=== PATIENT | female | born 1960 | race African-American/Black ===

== ENCOUNTER 2019-12-09 10:11 | Day surgery (SDC) | payer BC ==
[~2019-12-09] VITALS: Ht 165.1 cm; Wt 82.6 kg
[~2019-12-09 10:11] MED LIST: ASPI-986 PO; ATOR40TA70 PO; CLOP75TA4 PO; MECL-183 PO; NITR0.4T49 SL
[2019-12-09] MEDS ORDERED: ASPI-1497 PO (11:22)
[2019-12-09] MEDS ORDERED: NITROGLYCERIN 50MCG/ML 10ML VIAL (CATH LAB) IV ONE (13:39)
[2019-12-09] MEDS ORDERED: NICARDIPINE 100MCG/ML 10ML VIAL (CATH LAB) IV ONE (13:39)
[2019-12-09] MEDS ORDERED: ASPIRIN/SOD BICARB/CITRIC ACID 324MG TAB EFF ONE (15:11)
[2019-12-09] MEDS ORDERED: MIDAZOLAM HCL 2 MG/2 ML VIAL ONE (15:12)
[2019-12-09] MEDS ORDERED: FENTANYL CITRATE/PF 50MCG/ML 2ML VIAL ONE (15:13)
[2019-12-09] MEDS ORDERED: IODIXANOL 320MG/ML 100 ML BOTTLE IV ONE (15:15)
[2019-12-09] MEDS ORDERED: LIDOCAINE HCL 1% 20ML VIAL (Pyxis) INJ ONE (15:43)
[2019-12-09] MEDS ORDERED: HEPARIN SODIUM 1,000 UNIT/1ML VIAL IV ONE (16:01)
[2019-12-09] MEDS ORDERED: IOHEXOL-300 100 ML BOTTLE ONE (16:05)
[2019-12-09] MEDS ORDERED: ATROPINE SULFATE 1MG/10ML SYR IV PRN (16:30)
[2019-12-09] MEDS ORDERED: ACETAMINOPHEN 325MG TABLET PO PRN (16:30)
[2019-12-09] MEDS ORDERED: MORPHINE SULFATE 2 MG/ML CPJ (NOT FOR IM USE) IV PRN (16:30)
[2019-12-09] MEDS ORDERED: ONDANSETRON HCL 4MG/2ML INJ IV PRN (16:30)
[2019-12-09] MEDS ORDERED: MAGNESIUM 4 G PREMIX 100 ML IV ONE (17:45)
[2019-12-09] MEDS ORDERED: EPOETIN ALFA 10000UNITS/ML VIAL IV NR (20:00)
== END 2019-12-09 20:50 | disposition home or self-care (01) ==
LOC: CCL 10:11
PROVIDERS: ATTEND Specialist
DX: T82.855A Stenosis of coronary artery stent, initial encounter (principal); I25.10 Atherosclerotic heart disease of native coronary artery without angina pectoris; I10 Essential (primary) hypertension; E78.5 Hyperlipidemia, unspecified; Z79.82 Long term (current) use of aspirin; Z79.899 Other long term (current) drug therapy; Z80.3 Family history of malignant neoplasm of breast; Z82.49 Family history of ischemic heart disease and other diseases of the circulatory system; Y71.3 Surgical instruments, materials and cardiovascular devices (including sutures) associated with adverse incidents
CPT/HCPCS: 85347; 93005; 93459; 93571; 99152; 99153; C1769; C1887; C1893; J0885; J1644; J2250; J3010; J3490; Q9967; G0500

== ENCOUNTER → 2019-12-19 | Outpatient (CLI) | payer BC ==
[~2019-12-19] MED LIST changes: +AMLO5TAB88 PO; +ASPI-1497 PO; -ASPI-986 PO; +EZET10TA13 PO; +OLME40TA18 PO
[2019-12-19 12:35] LABS: CLARITY URINE CLEAR (CLEAR); COLOR URINE YELLOW (YELLOW); KETONES URINE NEGATIVE (NEGATIVE); LEUKOCYTE ESTERASE URINE TRACE (NEGATIVE); NITRITE URINE NEGATIVE (NEGATIVE); OCCULT BLOOD URINE NEGATIVE (NEGATIVE); PROTEIN URINE NEGATIVE (NEGATIVE); SPECIFIC GRAVITY URINE 1.015 (1.005-1.030); UROBILINOGEN URINE 0.2 E.U./dL (0.2-1.0)
[2019-12-19 12:39] LABS: BASOPHILS % 1.2 % (0.0-2.0); EOSINOPHILS % 0.8 % (0.0-5.0); HEMATOCRIT. 37.3 % (36.0-48.0); HEMOGLOBIN. 12.1 g/dL (12.0-16.0); LYMPHOCYTES % 36.4 % (20.0-50.0); MEAN CORPUSCULAR HEMOGLOBIN 25.8 pg (28.0-32.0); MEAN CORPUSCULAR VOLUME 79.6 fL (81.0-99.0); MEAN PLATELET VOLUME 7.3 fl (7.4-10.4); NEUTROPHILS % 56.6 % (40.0-76.0); PLATELET 353 x1000/uL (130-400); RED BLOOD CELL COUNT 4.69 mill/uL (4.2-5.4); RED CELL DISTRIBUTION WIDTH 17.1 % (11.6-14.6)
[2019-12-19 12:52] LABS: PARTIAL THROMBOPLASTIN TIME 30.2 sec (23.4-31.0); PROTHROMBIN TIME 10.6 sec (9.6-11.0)
[2019-12-19 12:54] LABS: CHLORIDE 108 mEq/L (98-107)
== END | disposition home or self-care (01) ==
LOC: RAD 10:16
PROVIDERS: ATTEND Specialist
DX: Z01.818 Encounter for other preprocedural examination (principal); I25.10 Atherosclerotic heart disease of native coronary artery without angina pectoris; Z95.1 Presence of aortocoronary bypass graft
CPT/HCPCS: 36415; 71046; 80053; 81003; 83036; 83735; 84443; 85025; 86850; 86900

== ENCOUNTER 2019-12-23 05:33 | Inpatient (IN) | payer BC ==
[2019-12-23] VITALS (64 sets, daily range): BP systolic 91–160; BP diastolic 40–62
[~2019-12-23] VITALS: Ht 165.1 cm; Wt 87.1 kg
[~2019-12-23 05:33] MED LIST changes: -AMLO5TAB88 PO; -EZET10TA13 PO; -OLME40TA18 PO
[2019-12-23] MEDS ORDERED: NICARDIPINE 40MG/200ML PREMIX 200 ML IV PRN (06:00)
[2019-12-23] MEDS ORDERED: AMINOCAPROIC ACID 10,000 MG in SODIUM CHLORIDE 0.9% 460 ML IV PRN (06:00)
[2019-12-23] MEDS ORDERED: PHENYLEPHRINE 10 MG in DEXT 5% WATER 249 ML IV PRN (06:00)
[2019-12-23] MEDS ORDERED: DILTIAZEM HCL 5MG/ML 5ML VIAL IV PRN (06:00)
[2019-12-23] MEDS ORDERED: CEFAZOLIN 2,000 MG in DEXT 5% WATER 100 ML IV PRN (06:00)
[2019-12-23] MEDS ORDERED: DOBUTAMINE 250MG PREMIX 250 ML IV PRN (06:00)
[2019-12-23] MEDS ORDERED: EPINEPHRINE 4 MG in DEXT 5% WATER 246 ML IV PRN (06:00)
[2019-12-23] MEDS ORDERED: NOREPINEPHRINE 4 MG in DEXT 5% WATER 246 ML IV PRN (06:00)
[2019-12-23] MEDS ORDERED: DOPAMINE 400MG/250ML PREMIX 250 ML IV PRN (06:00)
[2019-12-23] MEDS ORDERED: DEL NIDO ELECTROLYTE-S(PH 7.4) 1,000 ML IV PRN ×2 (06:00)
[2019-12-23] MEDS ORDERED: INSULIN REGULAR (DRIP) 100 UNITS in SODIUM CHLORIDE 0.9% 99 ML IV PRN ×3 (06:00→21:04)
[2019-12-23] MEDS ORDERED: PAPAVERINE HCL 180MG in SODIUM CHLORIDE 0.9% 24ML IV PRN (06:00)
[2019-12-23] MEDS ORDERED: BACITRACIN 15GM TUBE TOP ONE (06:05)
[2019-12-23] MEDS ORDERED: SKIN ADHESIVE 0.7 GM EA TOP ONE (06:06)
[2019-12-23] MEDS ORDERED: THROMBIN (BOVINE) 5000 UNITS/VIAL TOP ONE (06:06)
[2019-12-23] MEDS ORDERED: BACITRACIN 50,000 UNITS/VIAL ONE (06:06)
[2019-12-23] MEDS ORDERED: HEPARIN 1000 UNITS/ML 10ML ONE ×2 (06:16→07:20)
[2019-12-23] MEDS ORDERED: FENTANYL CITRATE/PF 50MCG/ML 5ML VIAL ONE (07:13)
[2019-12-23] MEDS ORDERED: MIDAZOLAM HCL 2 MG/2 ML VIAL ONE (07:13)
[2019-12-23] MEDS ORDERED: PROPOFOL 10MG/ML 100ML 100 ML IV ONE (07:14)
[2019-12-23] MEDS ORDERED: SODIUM CHLORIDE 0.9% 10ML VIAL ONE (07:17)
[2019-12-23] MEDS ORDERED: LABETALOL HCL 5MG/ML VIAL 20ML IV ONE (07:18)
[2019-12-23] MEDS ORDERED: ACETAMINOPHEN 500MG TABLET ONE (07:19)
[2019-12-23] MEDS ORDERED: ROCURONIUM BROMIDE 10MG/ML VIAL 5ML IV ONE (07:23)
[2019-12-23] MEDS ORDERED: MAGNESIUM SULFATE 5GM/10ML VIAL IV ONE (07:53)
[2019-12-23] MEDS ORDERED: ETOMIDATE 2MG/ML 10ML VIAL IV ONE ×2 (07:53→07:56)
[2019-12-23] MEDS ORDERED: OLME40TA18 PO (08:18)
[2019-12-23] MEDS ORDERED: AMLO5TAB88 PO (08:18)
[2019-12-23] MEDS ORDERED: EZET10TA13 PO (08:18)
[2019-12-23] MEDS ORDERED: FUROSEMIDE 100MG/10ML VIAL ONE (08:37)
[2019-12-23] MEDS ORDERED: HEPARIN 10,000 UNITS/ML VIAL ONE (08:43)
[2019-12-23] MEDS ORDERED: METOCLOPRAMIDE HCL 10MG/2ML VIAL ONE (09:08)
[2019-12-23] MEDS ORDERED: ONDANSETRON HCL 4MG/2ML INJ ONE (09:08)
[2019-12-23] MEDS ORDERED: NEOSTIGMINE METHYLSULFATE 1MG/ML 10 ML VIAL ONE (09:41)
[2019-12-23] MEDS ORDERED: PROTAMINE SULFATE 10MG/ML VIAL 25ML IV ONE (09:48)
[2019-12-23] MEDS ORDERED: CALCIUM CHLORIDE 1GM/10ML SYR IV ONE (09:49)
[2019-12-23] MEDS ORDERED: ALBUMIN HUMAN 12.5G/250ML (5%) IV ONE (10:48)
[2019-12-23] MEDS ORDERED: DOPAMINE 400MG/250ML PREMIX 250 ML IV SCH (11:12)
[2019-12-23] MEDS ORDERED: SODIUM CHLORIDE 0.9% 500 ML IV PRN (11:12)
[2019-12-23] MEDS ORDERED: MAGNESIUM 2 G PREMIX 50 ML IV PRN (11:15)
[2019-12-23] MEDS ORDERED: ALBUMIN HUMAN 12.5G/250ML (5%) IV PRN (11:15)
[2019-12-23] MEDS ORDERED: ALBUMIN HUMAN 25GM/100ML (25%) IV PRN (11:15)
[2019-12-23] MEDS ORDERED: KETOROLAC 15MG/ML VIAL IV PRN (11:15)
[2019-12-23] MEDS ORDERED: MAGNESIUM SULFATE 3 GM in DEXT 5% WATER 100 ML IV PRN (11:15)
[2019-12-23] MEDS ORDERED: CALCIUM CHLORIDE 3,000 MG in DEXT 5% WATER 250 ML IV PRN (11:15)
[2019-12-23] MEDS ORDERED: MAGNESIUM 1 G PREMIX 100 ML IV PRN (11:15)
[2019-12-23] MEDS ORDERED: KETOROLAC 30MG/ML VIAL ONE (11:18)
[2019-12-23 11:55] LABS: BG BASE EXCESS -2.7 mmol/L (-2.0-2.0); BG CARBOXYHEMOGLOBIN 0.3 % (0.5-1.5); BG DEOXYHEMOGLOBIN 1.5 % (0.0-5.0); BG FRACTION INSPIRED OXYGEN 100; BG HCO3 ACT 23.9 mmol/L (22.0-26.0); BG METHEMOGLOBIN 0.1 % (0.0-1.5); BG OXYGEN SATURATION 98.5 % (92.0-98.5); BG OXYHEMOGLOBIN 98.1 % (94.0-97.0); BG PCO2 49.9 mmHg (35.0-45.0); BG PH 7.299 (7.350-7.450); BG PO2 145.7 mmHg (75.0-100.0); BG SAMPLE SITE A-LINE; BG TOTAL HEMOGLOBIN 11.3 g/dL (12.0-18.0); BG VENT MODE MASK - NRB
[2019-12-23] MEDS: DEXT 5%/0.45% NACL 1000ML 1,000 ML IV SCH (11:56)
[2019-12-23 11:59] LABS: BASOPHILS % 0.4 % (0.0-2.0); EOSINOPHILS % 0.4 % (0.0-5.0); HEMATOCRIT. 32.9 % (36.0-48.0); HEMOGLOBIN. 10.6 g/dL (12.0-16.0); LYMPHOCYTES % 27.3 % (20.0-50.0); MEAN CORPUSCULAR HEMOGLOBIN 25.6 pg (28.0-32.0); MEAN CORPUSCULAR VOLUME 79.7 fL (81.0-99.0); MEAN PLATELET VOLUME 7.2 fl (7.4-10.4); MONOCYTES % 2.6 % (2.0-8.0); NEUTROPHILS % 69.3 % (40.0-76.0); PLATELET 365 x1000/uL (130-400); RED BLOOD CELL COUNT 4.13 mill/uL (4.2-5.4); RED CELL DISTRIBUTION WIDTH 16.8 % (11.6-14.6)
[2019-12-23] MEDS: FAMOTIDINE 20MG/2ML VIAL IV SCH (12:04)
[2019-12-23 12:07] LABS: CHLORIDE 108 mEq/L (98-107)
[2019-12-23] MEDS: KCL 10MEQ/50ML PREMIX 150 ML IV PRN ×3 (12:25→14:04)
[2019-12-23] MEDS ORDERED: KCL 10MEQ/50ML PREMIX 200 ML IV PRN (12:30)
[2019-12-23] MEDS ORDERED: KCL 10MEQ/50ML PREMIX 100 ML IV PRN (12:30)
[2019-12-23] MEDS ORDERED: KCL 10MEQ/50ML PREMIX 50 ML IV NR (13:00)
[2019-12-23] MEDS ORDERED: MAGNESIUM 1 G PREMIX 100 ML IV NR (13:00)
[2019-12-23] MEDS: CEFAZOLIN 1000MG PREMIX 50 ML IV SCH ×2 (14:26→22:17)
[2019-12-23] MEDS: BACITRACIN 15GM TUBE TOP SCH (17:58)
[2019-12-23] MEDS: DOCUSATE SODIUM 100MG CAPSULE PO SCH (17:58)
[2019-12-23 18:18] LABS: BASOPHILS % 0.2 % (0.0-2.0); HEMATOCRIT. 25.7 % (36.0-48.0); HEMOGLOBIN. 8.4 g/dL (12.0-16.0); LYMPHOCYTES % 9.7 % (20.0-50.0); MEAN CORPUSCULAR VOLUME 79.3 fL (81.0-99.0); MEAN PLATELET VOLUME 7.7 fl (7.4-10.4); MONOCYTES % 4.8 % (2.0-8.0); NEUTROPHILS % 85.3 % (40.0-76.0); PLATELET 285 x1000/uL (130-400); RED BLOOD CELL COUNT 3.24 mill/uL (4.2-5.4); RED CELL DISTRIBUTION WIDTH 16.5 % (11.6-14.6)
[2019-12-23 18:22] LABS: CHLORIDE 108 mEq/L (98-107)
[2019-12-23] MEDS: MORPHINE SULFATE 2 MG/ML CPJ (NOT FOR IM USE) IV PRN (19:18)
[2019-12-23] MEDS ORDERED: FUROSEMIDE 40MG/4ML VIAL IVP SCH (19:45)
[2019-12-23] MEDS ORDERED: ASPIRIN 81MG TABLET PO NR (20:00)
[2019-12-23] MEDS ORDERED: CLOPIDOGREL 75MG TABLET PO NR (20:00)
[2019-12-23] MEDS: IPRATROPIUM/ALBUTEROL 0.5-3(2.5)MG/3ML NEB HHN SCH (20:38)
[2019-12-23] MEDS ORDERED: INSULIN REGULAR (DRIP) 100 UNITS in SODIUM CHLORIDE 0.9% 100 ML IV SCH (21:10)
[2019-12-23] MEDS ORDERED: DEXTROSE 50% WATER 50ML SYRINGE IV PRN ×2 (21:15)
[2019-12-23] MEDS: BLOOD SUGAR DIAGNOSTIC STRIP TEST SCH ×3 (22:01→23:46)
[2019-12-23] MEDS ORDERED: NICARDIPINE 50 MG in SODIUM CHLORIDE 0.9% 230 ML IV PRN (23:45)
[2019-12-24] VITALS (82 sets, daily range): BP systolic 92–165; BP diastolic 35–77
[2019-12-24] MEDS: IPRATROPIUM/ALBUTEROL 0.5-3(2.5)MG/3ML NEB HHN SCH ×6 (00:06→20:44)
[2019-12-24] MEDS: MORPHINE SULFATE 2 MG/ML CPJ (NOT FOR IM USE) IV PRN ×3 (00:34→22:17)
[2019-12-24 01:21] LABS: HEMATOCRIT. 36.1 % (36.0-48.0); HEMOGLOBIN. 11.9 g/dL (12.0-16.0); MEAN CORPUSCULAR HEMOGLOBIN 27.2 pg (28.0-32.0); MEAN CORPUSCULAR VOLUME 82.8 fL (81.0-99.0); MEAN PLATELET VOLUME 7.6 fl (7.4-10.4); PLATELET 261 x1000/uL (130-400); RED BLOOD CELL COUNT 4.36 mill/uL (4.2-5.4); RED CELL DISTRIBUTION WIDTH 16.9 % (11.6-14.6)
[2019-12-24] MEDS: BLOOD SUGAR DIAGNOSTIC STRIP TEST SCH ×14 (01:46→20:36)
[2019-12-24 01:55] LABS: PLATELET ESTIMATE NORMAL
[2019-12-24 02:41] LABS: CHLORIDE 106 mEq/L (98-107)
[2019-12-24] MEDS: CEFAZOLIN 1000MG PREMIX 50 ML IV SCH (05:18)
[2019-12-24 06:49] LABS: BASOPHILS % 0.1 % (0.0-2.0); HEMATOCRIT. 34.4 % (36.0-48.0); HEMOGLOBIN. 11.4 g/dL (12.0-16.0); LYMPHOCYTES % 9.4 % (20.0-50.0); MEAN CORPUSCULAR HEMOGLOBIN 27.5 pg (28.0-32.0); MEAN CORPUSCULAR VOLUME 82.8 fL (81.0-99.0); MEAN PLATELET VOLUME 8.2 fl (7.4-10.4); MONOCYTES % 3.8 % (2.0-8.0); NEUTROPHILS % 86.7 % (40.0-76.0); PLATELET 249 x1000/uL (130-400); RED BLOOD CELL COUNT 4.15 mill/uL (4.2-5.4); RED CELL DISTRIBUTION WIDTH 16.9 % (11.6-14.6)
[2019-12-24 07:05] LABS: CHLORIDE 104 mEq/L (98-107)
[2019-12-24] MEDS: CLOPIDOGREL 75MG TABLET PO SCH (08:05)
[2019-12-24] MEDS: FUROSEMIDE 40MG TABLET PO SCH ×2 (08:05→08:21)
[2019-12-24] MEDS: METOPROLOL TARTRATE 25MG TABLET PO SCH ×2 (08:05→20:35)
[2019-12-24] MEDS: DOCUSATE SODIUM 100MG CAPSULE PO SCH ×2 (08:05→18:20)
[2019-12-24] MEDS: FAMOTIDINE 20MG/2ML VIAL IV SCH (08:05)
[2019-12-24] MEDS: BACITRACIN 15GM TUBE TOP SCH ×2 (08:06→18:20)
[2019-12-24] MEDS: ASPIRIN 81MG TABLET PO SCH (08:06)
[2019-12-24] MEDS ORDERED: MAGNESIUM 4 G PREMIX 100 ML IV SCH (09:00)
[2019-12-24 09:45] LABS: BASOPHILS % 0.2 % (0.0-2.0); HEMATOCRIT. 34.3 % (36.0-48.0); HEMOGLOBIN. 11.3 g/dL (12.0-16.0); LYMPHOCYTES % 11.7 % (20.0-50.0); MEAN CORPUSCULAR HEMOGLOBIN 27.2 pg (28.0-32.0); MEAN CORPUSCULAR VOLUME 82.2 fL (81.0-99.0); MONOCYTES % 4.7 % (2.0-8.0); NEUTROPHILS % 83.4 % (40.0-76.0); PLATELET 253 x1000/uL (130-400); RED BLOOD CELL COUNT 4.17 mill/uL (4.2-5.4); RED CELL DISTRIBUTION WIDTH 17.2 % (11.6-14.6)
[2019-12-24 10:04] LABS: CHLORIDE 103 mEq/L (98-107)
[2019-12-24] MEDS ORDERED: DEXTROSE 50% WATER 50ML SYRINGE IV PRN (10:15)
[2019-12-24] MEDS: INSULIN LISPRO 100 UNITS/ML SUBCUT SCH ×3 (12:20→20:36)
[2019-12-24] MEDS: DEXT 5%/0.45% NACL 1000ML 1,000 ML IV SCH (12:28)
[2019-12-24] MEDS ORDERED: ONDANSETRON HCL 4MG/2ML INJ IV PRN (13:15)
[2019-12-24] MEDS: MAGNESIUM HYDROXIDE 400MG/5ML 30ML UDC PO SCH (20:33)
[2019-12-24] MEDS: MINERAL OIL 30ML BOTTLE PO SCH (20:35)
[2019-12-24] MEDS: ATORVASTATIN CALCIUM 40MG TABLET PO SCH (20:35)
[2019-12-25] VITALS (12 sets, daily range): BP systolic 104–122; BP diastolic 60–72
[2019-12-25] MEDS: IPRATROPIUM/ALBUTEROL 0.5-3(2.5)MG/3ML NEB HHN SCH ×6 (00:58→20:31)
[2019-12-25] MEDS: OXYCODONE HCL/ACETAMINOPHEN 5/325MG TABLET PO PRN ×2 (04:58→11:39)
[2019-12-25] MEDS: BLOOD SUGAR DIAGNOSTIC STRIP TEST SCH ×4 (06:34→21:18)
[2019-12-25] MEDS: INSULIN LISPRO 100 UNITS/ML SUBCUT SCH ×4 (07:20→21:00)
[2019-12-25 07:26] LABS: BASOPHILS % 0.3 % (0.0-2.0); EOSINOPHILS % 0.1 % (0.0-5.0); HEMATOCRIT. 31.6 % (36.0-48.0); HEMOGLOBIN. 10.5 g/dL (12.0-16.0); LYMPHOCYTES % 9.8 % (20.0-50.0); MEAN CORPUSCULAR HEMOGLOBIN 27.2 pg (28.0-32.0); MEAN CORPUSCULAR VOLUME 81.9 fL (81.0-99.0); MEAN PLATELET VOLUME 8.2 fl (7.4-10.4); MONOCYTES % 5.4 % (2.0-8.0); NEUTROPHILS % 84.4 % (40.0-76.0); PLATELET 240 x1000/uL (130-400); RED BLOOD CELL COUNT 3.86 mill/uL (4.2-5.4); RED CELL DISTRIBUTION WIDTH 17.1 % (11.6-14.6)
[2019-12-25] MEDS ORDERED: FUROSEMIDE 40MG/4ML VIAL IVP NR (07:30)
[2019-12-25 07:56] LABS: CHLORIDE 99 mEq/L (98-107)
[2019-12-25 08:08] LABS: PHOSPHORUS 3.3 mg/dL (2.5-4.9)
[2019-12-25 08:10] LABS: LDL CHOLESTEROL 57 mg/dL (5-100)
[2019-12-25 08:11] LABS: HDL CHOLESTEROL 47 mg/dL (40-59)
[2019-12-25] MEDS: METOPROLOL TARTRATE 25MG TABLET PO SCH ×2 (08:39→20:53)
[2019-12-25] MEDS: FUROSEMIDE 40MG TABLET PO SCH (08:39)
[2019-12-25] MEDS: DOCUSATE SODIUM 100MG CAPSULE PO SCH ×2 (08:45→17:50)
[2019-12-25] MEDS: CLOPIDOGREL 75MG TABLET PO SCH (08:46)
[2019-12-25] MEDS: ASPIRIN 81MG TABLET PO SCH (08:46)
[2019-12-25] MEDS: BACITRACIN 15GM TUBE TOP SCH ×2 (09:00→17:50)
[2019-12-25] MEDS: MAGNESIUM HYDROXIDE 400MG/5ML 30ML UDC PO SCH ×2 (09:00→17:50)
[2019-12-25] MEDS: MINERAL OIL 30ML BOTTLE PO SCH (09:00)
[2019-12-25] MEDS: FAMOTIDINE 20MG/2ML VIAL IV SCH (09:02)
[2019-12-25] MEDS: MORPHINE SULFATE 2 MG/ML CPJ (NOT FOR IM USE) IV PRN (09:02)
[2019-12-25] MEDS ORDERED: MAGNESIUM 2 G PREMIX 50 ML IV SCH (10:00)
[2019-12-25] MEDS: DEXT 5%/0.45% NACL 1000ML 1,000 ML IV SCH ×2 (11:12→23:02)
[2019-12-25] MEDS: ATORVASTATIN CALCIUM 40MG TABLET PO SCH (20:53)
[2019-12-26] VITALS (11 sets, daily range): BP systolic 95–131; BP diastolic 51–86
[2019-12-26] MEDS: IPRATROPIUM/ALBUTEROL 0.5-3(2.5)MG/3ML NEB HHN SCH ×6 (00:14→21:18)
[2019-12-26] MEDS: BLOOD SUGAR DIAGNOSTIC STRIP TEST SCH ×4 (06:54→21:08)
[2019-12-26] MEDS: INSULIN LISPRO 100 UNITS/ML SUBCUT SCH ×4 (06:55→21:00)
[2019-12-26 07:11] LABS: BASOPHILS % 0.3 % (0.0-2.0); EOSINOPHILS % 0.4 % (0.0-5.0); HEMATOCRIT. 32.9 % (36.0-48.0); LYMPHOCYTES % 12.8 % (20.0-50.0); MEAN CORPUSCULAR HEMOGLOBIN 27.7 pg (28.0-32.0); MEAN CORPUSCULAR VOLUME 82.6 fL (81.0-99.0); MEAN PLATELET VOLUME 7.9 fl (7.4-10.4); MONOCYTES % 5.9 % (2.0-8.0); NEUTROPHILS % 80.6 % (40.0-76.0); PLATELET 270 x1000/uL (130-400); RED BLOOD CELL COUNT 3.98 mill/uL (4.2-5.4); RED CELL DISTRIBUTION WIDTH 17.5 % (11.6-14.6)
[2019-12-26 07:12] LABS: CHLORIDE 101 mEq/L (98-107)
[2019-12-26] MEDS: ASPIRIN 81MG TABLET PO SCH (08:51)
[2019-12-26] MEDS: DOCUSATE SODIUM 100MG CAPSULE PO SCH ×2 (08:51→17:00)
[2019-12-26] MEDS: METOPROLOL TARTRATE 25MG TABLET PO SCH ×2 (08:51→21:00)
[2019-12-26] MEDS: FAMOTIDINE 20MG/2ML VIAL IV SCH (08:52)
[2019-12-26] MEDS: MINERAL OIL 30ML BOTTLE PO SCH (08:52)
[2019-12-26] MEDS: FUROSEMIDE 40MG TABLET PO SCH (08:52)
[2019-12-26] MEDS: CLOPIDOGREL 75MG TABLET PO SCH (08:52)
[2019-12-26] MEDS: BACITRACIN 15GM TUBE TOP SCH ×2 (09:00→17:00)
[2019-12-26] MEDS: MAGNESIUM HYDROXIDE 400MG/5ML 30ML UDC PO SCH ×2 (09:00→17:00)
[2019-12-26 09:53] LABS: BG BASE EXCESS 2.8 mmol/L (-2.0-2.0); BG CARBOXYHEMOGLOBIN 0.4 % (0.5-1.5); BG DEOXYHEMOGLOBIN 7.8 % (0.0-5.0); BG FRACTION INSPIRED OXYGEN 21; BG METHEMOGLOBIN 0.1 % (0.0-1.5); BG OXYGEN SATURATION 92.2 % (92.0-98.5); BG OXYHEMOGLOBIN 91.7 % (94.0-97.0); BG PCO2 30.5 mmHg (35.0-45.0); BG PH 7.531 (7.350-7.450); BG PO2 61.9 mmHg (75.0-100.0); BG SAMPLE SITE RIGHT RADIAL; BG TOTAL HEMOGLOBIN 11.8 g/dL (12.0-18.0); BG VENT MODE ROOM AIR
[2019-12-26] MEDS ORDERED: IOHEXOL-350 100 ML BOTTLE ONE (12:42)
[2019-12-26] MEDS ORDERED: FUROSEMIDE 40MG/4ML VIAL IVP NR (15:00)
[2019-12-26] MEDS: ATORVASTATIN CALCIUM 40MG TABLET PO SCH (21:06)
[2019-12-27] VITALS (7 sets, daily range): BP systolic 108–133; BP diastolic 60–72
[2019-12-27] MEDS: IPRATROPIUM/ALBUTEROL 0.5-3(2.5)MG/3ML NEB HHN SCH ×4 (00:52→12:00)
[2019-12-27] MEDS: INSULIN LISPRO 100 UNITS/ML SUBCUT SCH (06:46)
[2019-12-27] MEDS: BLOOD SUGAR DIAGNOSTIC STRIP TEST SCH (06:46)
[2019-12-27] MEDS: ASPIRIN 81MG TABLET PO SCH (08:56)
[2019-12-27] MEDS: FAMOTIDINE 20MG/2ML VIAL IV SCH (08:56)
[2019-12-27] MEDS: FUROSEMIDE 40MG TABLET PO SCH (08:56)
[2019-12-27] MEDS: CLOPIDOGREL 75MG TABLET PO SCH (08:56)
[2019-12-27] MEDS: BACITRACIN 15GM TUBE TOP SCH (08:57)
[2019-12-27] MEDS: METOPROLOL TARTRATE 25MG TABLET PO SCH (08:57)
[2019-12-27] MEDS: MAGNESIUM HYDROXIDE 400MG/5ML 30ML UDC PO SCH (08:57)
[2019-12-27] MEDS: DOCUSATE SODIUM 100MG CAPSULE PO SCH (08:57)
== END 2019-12-27 12:23 | disposition home health service (06) | DRG 236 ==
LOC: OR 05:33 → CVICU 05:34 → 3WST 12-25 00:44
PROVIDERS: ADMIT Internal Medicine; ATTEND Internal Medicine
PROC: 02100Z9 Bypass Coronary Artery, One Artery from Left Internal Mammary, Open Approach (ICD-10-PCS; principal; 2019-12-23)
PROC: 021109W Bypass Coronary Artery, Two Arteries from Aorta with Autologous Venous Tissue, Open Approach (ICD-10-PCS; 2019-12-23)
PROC: 06BQ4ZZ Excision of Left Saphenous Vein, Percutaneous Endoscopic Approach (ICD-10-PCS; 2019-12-23)
PROC: 30233N1 Transfusion of Nonautologous Red Blood Cells into Peripheral Vein, Percutaneous Approach (ICD-10-PCS; 2019-12-23)
DX: I25.10 Atherosclerotic heart disease of native coronary artery without angina pectoris (principal); I31.3 Pericardial effusion (noninflammatory); J98.11 Atelectasis; E44.1 Mild protein-calorie malnutrition; D62 Acute posthemorrhagic anemia; E78.00 Pure hypercholesterolemia, unspecified; R73.03 Prediabetes; I69.393 Ataxia following cerebral infarction; I69.322 Dysarthria following cerebral infarction; E78.5 Hyperlipidemia, unspecified; E87.70 Fluid overload, unspecified; I10 Essential (primary) hypertension; Z82.49 Family history of ischemic heart disease and other diseases of the circulatory system; Z79.82 Long term (current) use of aspirin; Z79.01 Long term (current) use of anticoagulants; Z79.02 Long term (current) use of antithrombotics/antiplatelets; Z79.84 Long term (current) use of oral hypoglycemic drugs; Z79.899 Other long term (current) drug therapy; Z68.32 Body mass index [BMI] 32.0-32.9, adult
CPT/HCPCS: 36415; 36600; 71045; 71275; 80048; 80053; 80061; 82375; 82805; 82962; 83036; 83735; 83880; 84100; 84132; 84145; 85025; 85347; 85379; 85520; 86850; 86900; 86920; 93005; 93306; 93308; 94640; 97110; 97116; 97163; 97167; 97535; C1729; C1751; C1758; J0690; J1644; J1815; J1885; J1940; J2250; J2270; J2405; J2704; J2710; J2720; J2765; J3010; J3475; J3490; J7050; J7060; L3908; P9016; P9041; P9047; Q9967

== ENCOUNTER → 2020-01-19 | Day surgery (SDC) | payer BC ==
[~2020-01-19] MED LIST changes: +AMLO5TAB88 PO; +EZET10TA13 PO; +LIDOCAINE HCL 1% 20ML VIAL (Pyxis) INJ ONE; +OLME40TA18 PO; +SODIUM BICARBONATE 4% (2.4MEQ) 5ML VIAL IV ONE
== END | disposition home or self-care (01) ==
LOC: RAD 08:28
PROVIDERS: ATTEND Nurse Practitioner
DX: J90 Pleural effusion, not elsewhere classified (principal); I25.810 Atherosclerosis of coronary artery bypass graft(s) without angina pectoris; E78.00 Pure hypercholesterolemia, unspecified; I10 Essential (primary) hypertension; Z79.82 Long term (current) use of aspirin; Z79.899 Other long term (current) drug therapy; Z98.890 Other specified postprocedural states; Z82.49 Family history of ischemic heart disease and other diseases of the circulatory system; Z80.3 Family history of malignant neoplasm of breast
CPT/HCPCS: 32555; 71045; J3490

== ENCOUNTER → 2020-02-11 | Outpatient (CLI) | payer BC ==
[~2020-02-11] MED LIST changes: -LIDOCAINE HCL 1% 20ML VIAL (Pyxis) INJ ONE; -SODIUM BICARBONATE 4% (2.4MEQ) 5ML VIAL IV ONE
== END | disposition home or self-care (01) ==
LOC: RAD 10:27
PROVIDERS: ATTEND Thoracic Surgery (Cardiothoracic Vascular Surgery)
DX: R07.89 Other chest pain (principal); Z95.1 Presence of aortocoronary bypass graft
CPT/HCPCS: 71045

== ENCOUNTER → 2020-04-19 | Outpatient (CLI) | payer BC | END | disposition home or self-care (01) | LOC: LAB 09:17 | PROVIDERS: ATTEND Specialist | DX: R05 Cough (principal); Z20.828 Contact with and (suspected) exposure to other viral communicable diseases | CPT/HCPCS: C9803; U0003 ==

== ENCOUNTER 2020-04-20 06:24 | Day surgery (SDC) | payer BC ==
[~2020-04-20] VITALS: Ht 165.1 cm; Wt 81.2 kg
[2020-04-20] MEDS ORDERED: LIDOCAINE HCL 1% 20ML VIAL (Pyxis) INJ ONE (07:42)
[2020-04-20] MEDS ORDERED: MIDAZOLAM HCL 2 MG/2 ML VIAL ONE (07:42)
[2020-04-20] MEDS ORDERED: IODIXANOL 320MG/ML 100 ML BOTTLE IV ONE (07:43)
[2020-04-20] MEDS ORDERED: FENTANYL CITRATE/PF 50MCG/ML 2ML VIAL ONE (07:43)
[2020-04-20] MEDS ORDERED: ASPIRIN/SOD BICARB/CITRIC ACID 324MG TAB EFF ONE (07:50)
[2020-04-20] MEDS ORDERED: ATROPINE SULFATE 1MG/10ML SYR IV PRN (09:00)
[2020-04-20] MEDS ORDERED: ONDANSETRON HCL 4MG/2ML INJ IV PRN (09:00)
[2020-04-20] MEDS ORDERED: ACETAMINOPHEN 325MG TABLET PO PRN (09:00)
[2020-04-20] MEDS ORDERED: MORPHINE SULFATE 2 MG/ML CPJ (NOT FOR IM USE) IV PRN (09:00)
[2020-04-20] MEDS ORDERED: NITROGLYCERIN 50MCG/ML 10ML VIAL (CATH LAB) IV ONE (12:47)
[2020-04-20] MEDS ORDERED: NICARDIPINE 100MCG/ML 10ML VIAL (CATH LAB) IV ONE (12:47)
[2020-04-20] MEDS ORDERED: HEPARIN SODIUM 1,000 UNIT/1ML VIAL IV ONE (12:47)
== END 2020-04-20 13:20 | disposition home or self-care (01) ==
LOC: CCL 06:24
PROVIDERS: ATTEND Specialist
DX: I20.9 Angina pectoris, unspecified (principal); I11.9 Hypertensive heart disease without heart failure; I65.21 Occlusion and stenosis of right carotid artery; I73.9 Peripheral vascular disease, unspecified; E78.2 Mixed hyperlipidemia; E66.3 Overweight; Z79.82 Long term (current) use of aspirin; Z79.899 Other long term (current) drug therapy; Z82.49 Family history of ischemic heart disease and other diseases of the circulatory system; Z80.3 Family history of malignant neoplasm of breast; Z86.73 Personal history of transient ischemic attack (TIA), and cerebral infarction without residual deficits; Z95.1 Presence of aortocoronary bypass graft; Z95.5 Presence of coronary angioplasty implant and graft; Z68.29 Body mass index [BMI] 29.0-29.9, adult
CPT/HCPCS: 93459; C1769; C1887; C1893; J1644; J2250; J3010; J3490; Q9967

== ENCOUNTER → 2020-05-24 | Outpatient (CLI) | payer BC ==
[~2020-05-24] MED LIST changes: -AMLO5TAB88 PO; -EZET10TA13 PO; -MECL-183 PO; -NITR0.4T49 SL; -OLME40TA18 PO
== END | disposition home or self-care (01) ==
LOC: LAB 08:56
PROVIDERS: ATTEND Specialist
DX: R05 Cough (principal); Z20.828 Contact with and (suspected) exposure to other viral communicable diseases
CPT/HCPCS: C9803; U0003

== ENCOUNTER 2020-05-25 06:35 | Inpatient (IN) | payer BC ==
[2020-05-25] VITALS (12 sets, daily range): BP systolic 126–165; BP diastolic 38–90
[~2020-05-25] VITALS: Ht 165.1 cm; Wt 84.5 kg
[2020-05-25] MEDS ORDERED: LIDOCAINE HCL 1% 20ML VIAL (Pyxis) INJ ONE (07:32)
[2020-05-25] MEDS ORDERED: FENTANYL CITRATE/PF 50MCG/ML 2ML VIAL ONE (07:32)
[2020-05-25] MEDS ORDERED: ASPIRIN/SOD BICARB/CITRIC ACID 324MG TAB EFF ONE (07:32)
[2020-05-25] MEDS ORDERED: MIDAZOLAM HCL 2 MG/2 ML VIAL ONE (07:33)
[2020-05-25] MEDS ORDERED: IODIXANOL 320MG/ML 100 ML BOTTLE IV ONE (07:33)
[2020-05-25] MEDS ORDERED: IOHEXOL-300 100 ML BOTTLE ONE (08:04)
[2020-05-25] MEDS ORDERED: CLOPIDOGREL 75MG TABLET ONE (08:50)
[2020-05-25] MEDS ORDERED: CLOPIDOGREL 75MG TABLET PO NR (08:50)
[2020-05-25] MEDS ORDERED: MORPHINE SULFATE 2 MG/ML CPJ (NOT FOR IM USE) IV PRN (09:00)
[2020-05-25] MEDS ORDERED: ONDANSETRON HCL 4MG/2ML INJ IV PRN (09:00)
[2020-05-25] MEDS ORDERED: ATROPINE SULFATE 1MG/10ML SYR IV PRN (09:00)
[2020-05-25] MEDS ORDERED: SODIUM CHLORIDE 0.45% 1,000 ML IV ONE (09:00)
[2020-05-25] MEDS ORDERED: HEPARIN SODIUM 1,000 UNIT/1ML VIAL IV ONE (10:17)
[2020-05-25] MEDS: ASPIRIN 325MG TABLET PO SCH (10:59)
[2020-05-25] MEDS: NEBIVOLOL HCL 5 MG TABLET PO SCH (10:59)
[2020-05-25] MEDS: LOSARTAN POTASSIUM 50 MG TABLET PO SCH ×2 (11:00→21:02)
[2020-05-25] MEDS ORDERED: ATORVASTATIN CALCIUM 40MG TABLET PO SCH (21:00)
[2020-05-26] VITALS (7 sets, daily range): BP systolic 118–142; BP diastolic 60–88
[2020-05-26 06:46] LABS: CHLORIDE 108 mEq/L (98-107)
[2020-05-26 06:51] LABS: BASOPHILS % 0.4 % (0.0-2.0); EOSINOPHILS % 1.4 % (0.0-5.0); HEMATOCRIT. 35.7 % (36.0-48.0); HEMOGLOBIN. 11.4 g/dL (12.0-16.0); LYMPHOCYTES % 27.8 % (20.0-50.0); MEAN CORPUSCULAR HEMOGLOBIN 26.2 pg (28.0-32.0); MEAN CORPUSCULAR VOLUME 81.9 fL (81.0-99.0); MEAN PLATELET VOLUME 8.1 fl (7.4-10.4); MONOCYTES % 6.8 % (2.0-8.0); NEUTROPHILS % 63.6 % (40.0-76.0); PLATELET 290 x1000/uL (130-400); RED BLOOD CELL COUNT 4.36 mill/uL (4.2-5.4); RED CELL DISTRIBUTION WIDTH 15.8 % (11.6-14.6)
[2020-05-26] MEDS: ACETAMINOPHEN 325MG TABLET PO PRN ×2 (07:30→07:36)
[2020-05-26] MEDS: LOSARTAN POTASSIUM 50 MG TABLET PO SCH (08:55)
[2020-05-26] MEDS: ASPIRIN 325MG TABLET PO SCH (08:55)
[2020-05-26] MEDS: NEBIVOLOL HCL 5 MG TABLET PO SCH (08:56)
[2020-05-26] MEDS ORDERED: CLOPIDOGREL 75MG TABLET PO SCH (09:00)
[2020-05-27] MEDS ORDERED: NEBI5TAB3 PO (13:58)
[2020-05-27] MEDS ORDERED: NITR0.4T SL (13:58)
== END 2020-05-26 10:57 | disposition home or self-care (01) | DRG 247 ==
LOC: CCL 06:35 → OBSVTOIN 06:36 → 3WST 06:36
PROVIDERS: ADMIT Specialist; ATTEND Specialist
PROC: 027034Z Dilation of Coronary Artery, One Artery with Drug-eluting Intraluminal Device, Percutaneous Approach (ICD-10-PCS; principal; 2020-05-25)
PROC: B2111ZZ Fluoroscopy of Multiple Coronary Arteries using Low Osmolar Contrast (ICD-10-PCS; 2020-05-25)
PROC: B41F1ZZ Fluoroscopy of Right Lower Extremity Arteries using Low Osmolar Contrast (ICD-10-PCS; 2020-05-25)
DX: T82.898A Other specified complication of vascular prosthetic devices, implants and grafts, initial encounter (principal); E78.5 Hyperlipidemia, unspecified; I25.10 Atherosclerotic heart disease of native coronary artery without angina pectoris; Y83.2 Surgical operation with anastomosis, bypass or graft as the cause of abnormal reaction of the patient, or of later complication, without mention of misadventure at the time of the procedure; I10 Essential (primary) hypertension; I70.209 Unspecified atherosclerosis of native arteries of extremities, unspecified extremity; I77.1 Stricture of artery; Z86.73 Personal history of transient ischemic attack (TIA), and cerebral infarction without residual deficits; Z95.1 Presence of aortocoronary bypass graft; Z79.899 Other long term (current) drug therapy; Z79.82 Long term (current) use of aspirin; Z79.02 Long term (current) use of antithrombotics/antiplatelets; Y92.89 Other specified places as the place of occurrence of the external cause
CPT/HCPCS: 36415; 80048; 85025; 85347; 92928; 93005; 93454; C1760; C1769; C1874; C1887; C1893; G0378; J1644; J2250; J3010; J3490; Q9967

== ENCOUNTER 2020-05-27 06:18 | Inpatient (IN) | payer BC ==
[~2020-05-27] VITALS: Ht 165.1 cm; Wt 83.0 kg
[2020-05-27] MEDS ORDERED: MORPHINE SULFATE 4 MG/ML CPJ (NOT FOR IM USE) IV STA (06:59)
[2020-05-27] MEDS ORDERED: ONDANSETRON HCL 4MG/2ML INJ IV STA (06:59)
[2020-05-27 07:34] LABS: BASOPHILS % 0.6 % (0.0-2.0); EOSINOPHILS % 1.8 % (0.0-5.0); HEMATOCRIT. 37.3 % (36.0-48.0); HEMOGLOBIN. 12.1 g/dL (12.0-16.0); MEAN CORPUSCULAR HEMOGLOBIN 26.5 pg (28.0-32.0); MEAN CORPUSCULAR VOLUME 81.7 fL (81.0-99.0); MEAN PLATELET VOLUME 7.9 fl (7.4-10.4); MONOCYTES % 6.6 % (2.0-8.0); PLATELET 289 x1000/uL (130-400); RED BLOOD CELL COUNT 4.56 mill/uL (4.2-5.4); RED CELL DISTRIBUTION WIDTH 15.7 % (11.6-14.6)
[2020-05-27 07:40] LABS: CHLORIDE 108 mEq/L (98-107)
[2020-05-27] MEDS ORDERED: ASPIRIN 81MG TABLET PO SCH (09:30)
[2020-05-27] MEDS ORDERED: CLOPIDOGREL 75MG TABLET PO SCH (09:30)
[2020-05-27 10:00] VITALS: BP 145/67
[2020-05-27 10:30] VITALS: BP 145/67
[2020-05-27] MEDS ORDERED: SODIUM CHLORIDE 0.45% 1,000 ML IV SCH (11:00)
[2020-05-27 12:00] VITALS: BP 131/89
[2020-05-27] MEDS ORDERED: OXYCODONE HCL/ACETAMINOPHEN 5/325MG TABLET PO PRN (13:45)
[2020-05-27] MEDS ORDERED: NITR0.4T SL (13:58)
[2020-05-27] MEDS ORDERED: NEBI5TAB3 PO (13:58)
[2020-05-27 16:29] VITALS: BP 127/61
[2020-05-27 17:11] LABS: CLARITY URINE CLEAR (CLEAR); COLOR URINE YELLOW (YELLOW); KETONES URINE NEGATIVE (NEGATIVE); LEUKOCYTE ESTERASE URINE TRACE (NEGATIVE); NITRITE URINE NEGATIVE (NEGATIVE); OCCULT BLOOD URINE NEGATIVE (NEGATIVE); PH URINE 6.5 (4.5-8.0); PROTEIN URINE NEGATIVE (NEGATIVE); SPECIFIC GRAVITY URINE 1.011 (1.005-1.030); UROBILINOGEN URINE 0.2 E.U./dL (0.2-1.0)
== END 2020-05-27 17:07 | disposition home or self-care (01) | DRG 313 ==
LOC: ER 06:18 → 5WST 08:45 → EDBEDREQTM 08:52 → EDBEDREQ 08:52 → ENRESERV 09:02
PROVIDERS: ADMIT Specialist; ATTEND Specialist
DX: R07.89 Other chest pain (principal); R10.9 Unspecified abdominal pain; E78.5 Hyperlipidemia, unspecified; I10 Essential (primary) hypertension; G89.29 Other chronic pain; M54.5 Low back pain; I25.10 Atherosclerotic heart disease of native coronary artery without angina pectoris; Z95.5 Presence of coronary angioplasty implant and graft; Z95.1 Presence of aortocoronary bypass graft; Z79.02 Long term (current) use of antithrombotics/antiplatelets
CPT/HCPCS: 36415; 71045; 74176; 80053; 81003; 83880; 84484; 85025; 93005; 99285; J2270; J2405

== ENCOUNTER 2020-06-30 09:17 | Inpatient (IN) | payer BC ==
[~2020-06-30] VITALS: Ht 165.1 cm; Wt 72.6 kg
[~2020-06-30 09:17] MED LIST changes: +NITR0.4T SL
[2020-06-30 14:35] LABS: BASOPHILS % 0.5 % (0.0-2.0); EOSINOPHILS % 0.5 % (0.0-5.0); HEMATOCRIT. 41.1 % (36.0-48.0); HEMOGLOBIN. 13.1 g/dL (12.0-16.0); LYMPHOCYTES % 27.6 % (20.0-50.0); MEAN CORPUSCULAR HEMOGLOBIN 26.2 pg (28.0-32.0); MEAN CORPUSCULAR VOLUME 81.9 fL (81.0-99.0); MONOCYTES % 4.8 % (2.0-8.0); NEUTROPHILS % 66.6 % (40.0-76.0); PLATELET 385 x1000/uL (130-400); RED BLOOD CELL COUNT 5.01 mill/uL (4.2-5.4); RED CELL DISTRIBUTION WIDTH 16.6 % (11.6-14.6)
[2020-06-30 14:36] LABS: CHLORIDE 105 mEq/L (98-107)
[2020-06-30] MEDS ORDERED: MECLIZINE 12.5MG TABLET PO PRN (15:15)
[2020-06-30] MEDS: ASPIRIN 81MG TABLET PO SCH (17:00)
[2020-06-30] MEDS: METOPROLOL TARTRATE 25MG TABLET PO SCH (21:00)
[2020-06-30] MEDS ORDERED: ATORVASTATIN CALCIUM 40MG TABLET PO SCH (21:00)
[2020-06-30 21:45] VITALS: BP 139/61
[2020-06-30 22:00] VITALS: BP 139/61
[2020-06-30] MEDS ORDERED: ACETAMINOPHEN 650MG/20.3ML UDC PO PRN (22:15)
[2020-06-30] MEDS: LOSARTAN POTASSIUM 50 MG TABLET PO SCH (22:25)
[2020-06-30] MEDS ORDERED: ACETAMINOPHEN 325MG TABLET PO PRN (23:00)
[2020-07-01] VITALS: BP 125/52
[2020-07-01 00:40] VITALS: BP 115/56
[2020-07-01 04:00] VITALS: BP 115/56
[2020-07-01 06:41] LABS: CHLORIDE 108 mEq/L (98-107)
[2020-07-01 06:47] LABS: BASOPHILS % 0.7 % (0.0-2.0); EOSINOPHILS % 1.2 % (0.0-5.0); HEMATOCRIT. 37.2 % (36.0-48.0); LYMPHOCYTES % 30.4 % (20.0-50.0); MEAN CORPUSCULAR HEMOGLOBIN 26.2 pg (28.0-32.0); MEAN CORPUSCULAR VOLUME 81.3 fL (81.0-99.0); MEAN PLATELET VOLUME 8.4 fl (7.4-10.4); MONOCYTES % 8.1 % (2.0-8.0); NEUTROPHILS % 59.6 % (40.0-76.0); PLATELET 319 x1000/uL (130-400); RED BLOOD CELL COUNT 4.57 mill/uL (4.2-5.4); RED CELL DISTRIBUTION WIDTH 16.3 % (11.6-14.6)
[2020-07-01 06:48] LABS: LDL CHOLESTEROL 143 mg/dL (5-100)
[2020-07-01 06:50] LABS: HDL CHOLESTEROL 52 mg/dL (40-59)
[2020-07-01 07:50] VITALS: BP 127/63
[2020-07-01] MEDS ORDERED: CLOPIDOGREL 75MG TABLET PO SCH (09:00)
[2020-07-01] MEDS: ASPIRIN 81MG TABLET PO SCH (10:36)
[2020-07-01] MEDS: LOSARTAN POTASSIUM 50 MG TABLET PO SCH (10:36)
[2020-07-01] MEDS: METOPROLOL TARTRATE 25MG TABLET PO SCH (10:40)
[2020-07-01] MEDS ORDERED: MECLIZINE 25MG TABLET PO PRN (10:45)
[2020-07-01 11:54] VITALS: BP 135/56
[2020-07-01 15:07] VITALS: BP 125/72
== END 2020-07-01 16:48 | disposition home or self-care (01) | DRG 149 ==
LOC: ER 09:30 → ENRESERV 19:35 → 6WST 22:03
PROVIDERS: ADMIT Specialist; ATTEND Specialist
DX: H81.10 Benign paroxysmal vertigo, unspecified ear (principal); E78.5 Hyperlipidemia, unspecified; R07.89 Other chest pain; H91.90 Unspecified hearing loss, unspecified ear; I10 Essential (primary) hypertension; I25.10 Atherosclerotic heart disease of native coronary artery without angina pectoris; Z79.02 Long term (current) use of antithrombotics/antiplatelets; Z79.82 Long term (current) use of aspirin; Z79.899 Other long term (current) drug therapy; Z86.73 Personal history of transient ischemic attack (TIA), and cerebral infarction without residual deficits; Z95.1 Presence of aortocoronary bypass graft; Z95.5 Presence of coronary angioplasty implant and graft
CPT/HCPCS: 36415; 70551; 80048; 80061; 83735; 85025; 93005; 99285; J8597